=== PATIENT | male | born 1955 | race Caucasian/White ===

== ENCOUNTER 2017-04-03 07:03 | Day surgery (SDC) | payer BC ==
--- NOTE | ~2017-04-03 | EGD ---
EGD REPORT [facility] [address] [address] NAME: LILIBETH SOLANO : [birth year] STATUS : REG [facility]#: [id number] AGE: 61 ADM/REG DATE : 04/03/17 MR#: [id number] REPORT SERV DATE: 04/03/17 DICTATED BY: SIRIA YEE DATE: 04/03/17 REPORT STATUS : Draft TRANSCRIBED BY: [facility] DATE: 04/03/17 Pulmonology Patient Name: Lilibeth Solano Procedure Date: 04/03/2017 9:29 AM Date of : 1955 Attending MD: ARSH YEE MD Procedure Date No Time: 04/03/2017 Procedure: EBUS Indications: Left upper lobe mass, Mediastinal adenopathy Providers: ARSH YEE MD Referring MD: BLU SANTO III Medicines: Lidocaine 2% 20 mL Complications: No immediate complications Procedure: Pre-Anesthesia Assessment: - A History and Physical has been performed. Patient meds and allergies have been reviewed. The risks and benefits of the procedure and the sedation options and risks were discussed with the patient. All questions were answered and informed consent was obtained. Patient identification and proposed procedure were verified prior to the procedure by the physician and the nurse in the pre-procedure area in the procedure room. Mental Status Examination: alert and oriented. Airway Examination: normal oropharyngeal airway. Respiratory Examination: clear to auscultation. CV Examination: normal and RRR, no murmurs, no S3 or S4. ASA Grade Assessment: III - A patient with severe systemic disease. After reviewing the risks and benefits, the patient was deemed in satisfactory condition to undergo the procedure. The anesthesia plan was to use general anesthesia. Immediately prior to administration of medications, the patient was re-assessed for adequacy to receive sedatives. The heart rate, respiratory rate, oxygen saturations, blood pressure, adequacy of pulmonary ventilation, and response to care were monitored throughout the procedure. The physical status of the patient was re-assessed after the procedure. After obtaining informed consent, the Bronchoscope was introduced through the mouth, via the endotracheal tube (the patient was intubated for the procedure) and advanced to the tracheobronchial tree. the BF [id number] was introduced through the mouth, via the endotracheal tube (the patient was intubated for the procedure) and advanced to the tracheobronchial tree. The procedure was accomplished without difficulty. The EGD REPORT [address] [address] NAME: LILIBETH SOLANO : [birth year] STATUS : REG [facility] PAT#: [id number] AGE: 61 ADM/REG DATE : 04/03/17 MR#: [id number] REPORT SERV DATE: 04/03/17 DICTATED BY: SIRIA YEE DATE: 04/03/17 REPORT STATUS : Draft TRANSCRIBED BY: [employer] DATE: 04/03/17 patient tolerated the procedure well. Findings: The endotracheal tube is in good position. The visualized portion of the trachea is of normal caliber. The renetta is sharp. The tracheobronchial tree was examined to at least the first subsegmental level. Bronchial mucosa was abnormal in the CAROLINE apicoposterior subsegment with puckering. Balloon dilation was performed in the apical-posterior segment of the left upper lobe of the lung using a Leslie balloon. The balloon was inflated to 4 sheree for 10 seconds a total of 1 time. The bronchial wall was erythematous and the lumen size is now approximately 25% of normal. Brushings were obtained in the apical-posterior segment of the left upper lobe of the lung and sent for routine cytology. One sample was obtained. Bronchoalveolar lavage was performed in the left upper lobe of the lung and sent for routine cytology. 60 mL of fluid were instilled. 30 mL were returned. The return was blood-tinged and cellular. There were no mucoid plugs in the return fluid Ablation was performed in the apical-posterior segment of the left upper lobe of the lung using an Argon Plasma Coagulation (APC). 15 Harmon of pulse energy were used. The pulse duration was set at 0.8 second. The post-procedure lumen size was cauterized for destruction of friable tumor infiltration. EBUS TBNA of lymph node level 11R x 4 passes for cytology EBUS TBNA of lymph node level 7 x 4 passes for cytology EBUS TBNA of lymph node level 4L x 6 passes for cytology EBUS TBNA of lymph node level 11L x 4 passes for cytology Impression: Rapid On-Site Evaluation (ISAMAR): Preliminary cytology is POSITIVE for malignancy (final results are pending). Recommendation: - Await test results. - Chest X-ray. - Follow up in clinic. - Refer to/consult with Oncology, Dr. Solo Lorenzo - Refer to/consult with Thoracic Surgery, Dr. Albert Sosa Attending Participation: I personally performed the entire procedure. ARSH YEE MD 04/03/2017 10:56 AM This report has been signed electronically. Number of Addenda: 0 Note Initiated On: 04/03/2017 9:29 AM [address] [id number]
--- NOTE | ~2017-04-03 | CN ---
Consultation Report [facility] [address] [place]. [address] NAME: LILIBETH SOLANO : 53 STATUS : REG [facility] PAT#: [id number] AGE: 61 ADM/REG DATE : 04/03/17 MR#: [id number] REPORT SERV DATE: 04/03/17 DICTATED BY: SHANNON YEE DATE: 04/03/17 REPORT STATUS : Draft TRANSCRIBED BY: MODYue DATE: 04/03/17 CONSULTATION DATE OF CONSULTATION: Dear Dr. Mcintyre: Thank you for requesting my opinion regarding evaluation and management of Mr. Lilibeth Solano's lung mass. Mr. Solano in extremely pleasant 61-year-old gentleman with a significant past medical history of heavy tobacco abuse, who presents to [facility] with chronic left-sided chest discomfort, recurrent pulmonary infections, and an abnormal CT scan of the chest. The patient underwent a chest x-ray and subsequent CT scan on 03/10/2017 that demonstrated an irregular left suprahilar mass measuring 2.7 cm in craniocaudal dimension likely representing a primary lung cancer. The irregular left suprahilar mass extended directly into the mediastinum at the level of the aortopulmonary window and has an enlarged and partially necrotic AP window node, which is contiguous to the medial aspect of the left suprahilar mass. No evidence of contralateral ammy disease. There is 0.5 pleural-based, noncalcified, right-sided right lower lobe pulmonary condyle is favored to be from scarring. A few other pleural-based subcentimeter nodules are also present and likely on the basis of scarring. There was no evidence of distant metastatic disease in the upper abdomen or in the bony structures. There was evidence of chronic or healed granulomatous disease. The patient currently states that his left-sided chest discomfort is minimal, well localized to the chest, nonradiating with no significant exacerbating factors. He denies any fevers, chills, night sweats, weight loss, weight gain, hemoptysis, or orthopnea. REVIEW OF SYSTEMS: A detailed 14-point review of systems was completed. Pertinent positives and negatives are listed above. ALLERGIES: NO KNOWN DRUG ALLERGIES. HOME MEDICATIONS: Reviewed and located in the paper chart. PAST MEDICAL HISTORY: 1. Allergic rhinitis. 2. Chronic ankle joint pain. 3. Atypical chest discomfort. 4. COPD with asthma. 5. Chronic cough. 6. Erectile dysfunction. 7. Fever. 8. GERD. 9. Hypertension. 10.Hyperlipidemia. Consultation Report [address] [place]. [address] NAME: LILIBETH SOLANO : [birth year] STATUS : REG [facility] PAT#: [id number] AGE: 61 ADM/REG DATE : 04/03/17 MR#: [id number] REPORT SERV DATE: 04/03/17 DICTATED BY: SHANNON YEE DATE: 04/03/17 REPORT STATUS : Draft TRANSCRIBED BY: SUSAN DATE: 04/03/17 11.Hypothyroidism. 12.History of palpitations. PAST SURGICAL HISTORY: As above. SOCIAL HISTORY: The patient drinks alcohol socially. He currently smokes at least one pack per day. He denies any significant history of alcohol or illicit drug abuse. FAMILY HISTORY: Brother with esophageal cancer. PHYSICAL EXAMINATION: VITAL SIGNS: Height 5 feet 6 inches, blood pressure 159/71, pulse of 69, respiratory rate of 20, 99% on room air. Afebrile. Weight 150 pounds. GENERAL: No acute distress. HEENT: Normocephalic and atraumatic. Pupils are equal, round, and reactive to light and accommodation. Posterior oropharynx is clear. NECK: No JVD. No LAD. Trachea midline. CARDIOVASCULAR: Regular rate and rhythm. S1 and S2 present. LUNGS: Clear to auscultation bilaterally. ABDOMEN: Nontender, nondistended. Soft. Positive bowel sounds. EXTREMITIES: No clubbing, cyanosis, or edema. SKIN: No rashes, lesions, or ulcers. PSYCHIATRIC: Alert and oriented x3. Appropriate mood and affect. Appropriate insight and judgment. NEUROLOGIC: 5/5 strength in upper and lower extremities. Cranial nerves 2 through 12 intact. Gait not tested. DTRs not performed. IMAGING PROCEDURE: 1. CT scan of the chest performed on 03/10/2017 was personally reviewed by me and I agree with the following interpretation; irregular left suprahilar mass measuring 2.7 cm in the craniocaudal dimension. This represents a primary lung neoplasm/mass at least partially surrounded the left pulmonary artery and left upper lobe bronchus, some associated postobstructive changes are noted. Irregular left suprahilar mass extends directly into the mediastinum at the level of the aortopulmonary window or there may be an enlarged partially necrotic aortopulmonary window node that is contiguous with the medial aspect of the left suprahilar mass. 2. Abnormal left hilar lymph nodes. 3. A 0.5, pleural-based, noncalcified lung nodule at the pulmonary condyle, which likely represents scarring and a few other pleural-based subcentimeter lung nodules may also represent scarring. ASSESSMENT AND PLAN: Mr. Lilibeth Solano is an extremely pleasant 61-year-old gentleman with a significant past medical history of heavy tobacco abuse, who presents to [facility] with a history of abnormal atypical left-sided chest discomfort and abnormal CT scan of the chest. The CT scan demonstrates a left suprahilar mass with potential direct invasion of Consultation Report [address] [place]. [address] NAME: LILIBETH SOLANO : 53 STATUS : REG [facility] PAT#: [id number] AGE: 61 ADM/REG DATE : 04/03/17 MR#: [id number] REPORT SERV DATE: 04/03/17 DICTATED BY: SHANNON YEE DATE: 04/03/17 REPORT STATUS : Draft TRANSCRIBED BY: MODYue DATE: 04/03/17 the mediastinum as well as enlarged left hilar and aortopulmonary lymph nodes. The clinical and radiographic presentation is highly concerning for advanced stage or stage III primary bronchogenic carcinoma. At this point, Mr. Solano needs an appropriate diagnostic intervention. We discussed in detail potential options including CT-guided needle biopsy, EBUS, and navigation bronchoscopy or thoracic surgical biopsy. After careful discussion of the risks, benefits, and alternatives to each of these procedures, we agreed to proceed forward with EBUS and navigation bronchoscopy. The patient is aware that the procedures were associated with potential life-threatening risks, including lung collapse, respiratory failure, and even . RECOMMENDATIONS: A summary of my recommendations are as follows: 1. Proceed with EBUS and navigation bronchoscopy. 2. Further recommendations to be detailed in the postoperative note. 3. Smoking cessation counseling provided. Thank you for allowing me to participate in Mr. Lilibeth Solano's care. MARLENE/VENKATESHL Shannon Yee M.D. / [id number] CC: Dayne Donald III, D.O.
[~2017-04-03 07:03] MED LIST: LEVOTHROID88 MCG PO; LEVOTHYROXIN88 MCG PO; LIPITOR20 PO; NORV25 PO; PEPCID PO; PRILOSEC40 MG PO; PROAIR HFA INH
[2017-04-03 07:21] LABS: BASOPHILS 1.1 %; EOSINOPHILS 3.4 %; EOSINOPHILS ABSOLUTE 0.32 10/3/uL (0.0-0.53); HEMOGLOBIN 14.1 g/dL (13.6-17.8); IMMATURE GRANULOCYTES 0.2 %; IMMATURE GRANULOCYTES ABSOLUTE 0.02 10/3/uL (0.0-0.11); LYMPHOCYTES 25.7 %; LYMPHOCYTES ABSOLUTE 2.44 10/3/uL (0.67-4.30); MEAN CORPUS HGB CONC 34.1 g/dL (32.0-36.0); MEAN CORPUSCULAR HEMOGLOB 31.4 pg (26.0-34.0); MEAN PLATELET VOLUME 10.4 fL (9.2-13.0); MONOCYTES 10.6 %; MONOCYTES ABSOLUTE 1.01 10/3/uL (0.21-1.20); NEUTROPHILS ABSOLUTE 5.62 10/3/uL (2.02-8.40); PLATELET COUNT 263 10/3/uL (150-400); RBC DISTRIBUTION WIDTH 13.6 % (12.0-16.0); RED CELL COUNT 4.49 10/6/uL (4.7-6.1); WHITE BLOOD CELLS 9.5 10/3/uL (4.5-10.5)
[2017-04-03 07:23] LABS: HEMATOCRIT 41.3 % (40.0-51.0); MANUAL DIFF NO %
[2017-04-03 07:30] LABS: PARTIAL THROMBO TIME 26.9 SEC (22.5-37.2); PROTIME (NOT ORD) 12.6 SEC (12.0-14.5)
[2017-04-03 07:33] LABS: BUN (BLOOD UREA NITROGEN) 14 MG/DL (6-23); CALCIUM, SERUM 9.5 MG/DL (8.5-10.4); CHLORIDE, SERUM 107 MMOL/L (96-112); CO2 (CARBON DIOXIDE) 30 MMOL/L (24-34); CREATININE 0.91 MG/DL (0.70-1.30); GFR AFRICAN AMERICAN 104 ML/MIN (>=60); GFR NON AFRICAN AMERICAN 90 ML/MIN (>=60); GLUCOSE, SERUM 105 MG/DL (60-99); POTASSIUM, SERUM 4.3 MMOL/L (3.5-5.3); SODIUM, SERUM 142 MMOL/L (135-148)
== END 2017-04-03 17:51 | disposition home or self-care (01) ==
LOC: DMU 07:03
PROVIDERS: Anesthesiology; Internal Medicine
PROC: 0BBG8ZX Excision of Left Upper Lung Lobe, Via Natural or Artificial Opening Endoscopic, Diagnostic (ICD-10-PCS; principal; 2017-04-03 09:30)
PROC: 0B9G8ZX Drainage of Left Upper Lung Lobe, Via Natural or Artificial Opening Endoscopic, Diagnostic (ICD-10-PCS; 2017-04-03 09:30)
PROC: 0B5G8ZZ Destruction of Left Upper Lung Lobe, Via Natural or Artificial Opening Endoscopic (ICD-10-PCS; 2017-04-03 09:30)
PROC: 07974ZX Drainage of Thorax Lymphatic, Percutaneous Endoscopic Approach, Diagnostic (ICD-10-PCS; 2017-04-03 09:30)
PROC: BB4CZZZ Ultrasonography of Mediastinum (ICD-10-PCS; 2017-04-03 09:30)
DX: C34.12 Malignant neoplasm of upper lobe, left bronchus or lung (principal); C77.1 Secondary and unspecified malignant neoplasm of intrathoracic lymph nodes; J44.9 Chronic obstructive pulmonary disease, unspecified; J45.909 Unspecified asthma, uncomplicated; I10 Essential (primary) hypertension; E78.5 Hyperlipidemia, unspecified; E03.9 Hypothyroidism, unspecified; N52.9 Male erectile dysfunction, unspecified; G89.29 Other chronic pain; M25.579 Pain in unspecified ankle and joints of unspecified foot; M06.9 Rheumatoid arthritis, unspecified; K21.9 Gastro-esophageal reflux disease without esophagitis; F17.210 Nicotine dependence, cigarettes, uncomplicated; Z80.0 Family history of malignant neoplasm of digestive organs; Z79.899 Other long term (current) drug therapy
CPT/HCPCS: 71010; 80048; 85025; 85610; 85730; 88112; 88172; 88173; 88305; 88333; 93005; 94640; A9270-GY; C1725; J2405; J2710; J3010